=== PATIENT | female | born 1975 | race Caucasian/White ===

== ENCOUNTER 2018-07-30 13:06 | Emergency (ER) | payer MEDICAID ==
[~2018-07-30] VITALS: Ht 152.4 cm; Wt 67.9 kg
[2018-07-30 13:12] VITALS: BP 119/74
== END 2018-07-30 14:44 | disposition home or self-care (01) ==
LOC: ED 14:43
DX: S62.616A Displaced fracture of proximal phalanx of right little finger, initial encounter for closed fracture (principal); W01.0XXA Fall on same level from slipping, tripping and stumbling without subsequent striking against object, initial encounter; Y93.89 Activity, other specified; Y92.89 Other specified places as the place of occurrence of the external cause; Y99.8 Other external cause status
CPT/HCPCS: 29125; 99283